=== PATIENT | female | born 1955 | race African-American/Black ===

== ENCOUNTER 2017-09-28 10:14 | Inpatient (IN) | payer BC, OTHER ==
[~2017-09-28] VITALS: Ht 154.9 cm; Wt 78.4 kg
[~2017-09-28 10:14] MED LIST: METF500T6 PO; PIPERACILLIN/TAZO 3.375 GM/D5W 50 ML IV SCH
[2017-09-28 10:33] LABS: GLUCOSE,POINT OF CARE 174 MG/DL (70-110)
[2017-09-28] MEDS ORDERED: BARIUM SULFATE 0.1% SUSPENSION 450 ML BOTTLE PO ONE (11:15)
[2017-09-28] MEDS ORDERED: FentaNYL CITRATE-PF 100 MCG/2 ML VIAL IVP ONE (11:15)
[2017-09-28] MEDS ORDERED: SODIUM CHLORIDE 0.9% 1,000 ML IV ONE (11:15)
[2017-09-28] MEDS ORDERED: ONDANSETRON HCL 4 MG/2 ML VIAL IVP ONE (11:15)
[2017-09-28 11:18] LABS: HEMATOCRIT 37.8 % (36-46); HEMOGLOBIN 12.8 g/dL (12.0-16.0); MEAN CORPUSCULAR HGB CONC 33.8 G/dL (31.0-37.0); MEAN CORPUSCULAR VOLUME 80 fL (80-100); PLATELET COUNT (AUTO) 312 K/uL (150-450); RED BLOOD CELL COUNT(AUTO) 4.73 MIL/uL (4.00-5.20); RED CELL DISTRIBUTION WIDTH 13.6 % (11.5-14.5)
[2017-09-28 11:30] LABS: CALCIUM, TOTAL 9.3 mg/dL (8.8-10.5); CREATININE 1.29 mg/dL (0.60-1.30); POTASSIUM 4.1 mmol/L (3.5-5.1)
[2017-09-28 11:36] LABS: BILIRUBIN,TOTAL 1.4 mg/dL (0.1-1.0); TOTAL PROTEIN, SERUM 8.3 g/dL (6.4-8.2)
[2017-09-28 11:38] LABS: LACTIC ACID 1.7 mmol/L (0.4-2.0)
[2017-09-28 11:55] LABS: BAND NEUTROPHILS % (MANUAL) 21 % (0-5); LYMPHOCYTES % (MANUAL) 12 % (22-44); MONOCYTES % (MANUAL) 7 % (2-9); SEGMENTED NEUTROPHILS % 60 % (40-70)
[2017-09-28 12:02] LABS: APPEARANCE,URINE TURBID (CLEAR); GLUCOSE, URINE (UA) NEGATIVE (NEGATIVE); KETONES,URINE 15 mg/dL (NEGATIVE); LEUKOCYTE ESTERASE ,URINE TRACE (NEGATIVE); NITRATE,URINE POSITIVE (NEGATIVE); OCCULT BLOOD,URINE NEGATIVE (NEGATIVE); PH,URINE 5.5 (5.0-8.0); PROTEIN,URINE SEE CONFIRM (NEGATIVE)
[2017-09-28 12:10] LABS: BILIRUBIN,URINE PRELIM. POSITIVE (NEGATIVE)
[2017-09-28 12:11] LABS: SULFOSALICYLIC ACID,URINE 1+ (Negative)
[2017-09-28 12:13] LABS: BACTERIA,URINE Moderate /HPF (None Seen); RBC,URINE None Seen /HPF (0-2); SQUAMOUS EPITHELIAL CELL,UR Moderate /LPF (None Seen); WBC,URINE 0-2 /HPF (0-5)
[2017-09-28] MEDS ORDERED: IOVERSOL 350 MG/ML 150 ML VIAL ONE (12:24)
[2017-09-28] MEDS ORDERED: IOVERSOL 350 MG/ML 100 ML VIAL ONE (12:51)
[2017-09-28] MEDS ORDERED: PIPERACILLIN/TAZO 3.375 GM/D5W 50 ML IV ONE ×3 (13:45→20:00)
[2017-09-28] MEDS ORDERED: DiphenhydrAMINE HCL 50 MG/ML VIAL IVP ONE (14:00)
[2017-09-28] MEDS ORDERED: MORPHINE SULFATE 4 MG/ML SYRINGE IVP PRN (14:00)
[2017-09-28] MEDS ORDERED: POTASSIUM CHL 20 MEQ/0.45% NS 1,000 ML IV ONE (14:00)
[2017-09-28] MEDS ORDERED: ONDANSETRON HCL 4 MG/2 ML VIAL IVP PRN ×2 (14:00→20:15)
[2017-09-28] MEDS ORDERED: 0.9% SODIUM CHLORIDE 10 ML SYRINGE IVP PRN (14:00)
[2017-09-28 14:47] LABS: GLUCOSE,POINT OF CARE 137 MG/DL (70-110)
[2017-09-28 16:00] VITALS: BP 128/62
[2017-09-28] MEDS ORDERED: DEXTROSE 50%-WATER 25 GM/50 ML SYRINGE IVP PRN (20:15)
[2017-09-28 20:19] VITALS: BP 117/66
[2017-09-28] MEDS: PANTOPRAZOLE SODIUM 40 MG/VIAL IVP SCH (20:43)
[2017-09-28] MEDS: ACETAMINOPHEN 650 MG RECTAL SUPPOSITORY PR PRN (20:43)
[2017-09-28] MEDS: SODIUM CHLORIDE 0.9% 1,000 ML IV SCH (20:44)
[2017-09-28 23:42] LABS: GLUCOMETER DEV NAME(LOC) 6N 1E; GLUCOSE,POINT OF CARE 120 MG/DL (70-110)
[2017-09-29 00:28] VITALS: BP 107/64
[2017-09-29] MEDS ORDERED: PIPERACILLIN/TAZO 3.375 GM/D5W 50 ML IV SCH (02:00)
[2017-09-29] MEDS: PIPERACILLIN/TAZO 3.375 GM/D5W 50 ML IV SCH ×4 (03:53→21:50)
[2017-09-29 05:10] VITALS: BP 114/86
[2017-09-29 06:12] LABS: GLUCOMETER DEV NAME(LOC) 6N 2D; GLUCOSE,POINT OF CARE 89 MG/DL (70-110)
[2017-09-29 06:49] LABS: HEMATOCRIT 34.8 % (36-46); MEAN CORPUSCULAR HEMOGLOBIN 27.5 pg (26.0-34.0); MEAN CORPUSCULAR HGB CONC 34.5 G/dL (31.0-37.0); MEAN CORPUSCULAR VOLUME 80 fL (80-100); PLATELET COUNT (AUTO) 286 K/uL (150-450); RED BLOOD CELL COUNT(AUTO) 4.37 MIL/uL (4.00-5.20); RED CELL DISTRIBUTION WIDTH 14.1 % (11.5-14.5)
[2017-09-29 08:07] LABS: ALANINE AMINOTRANSFERASE 25 U/L (12-78); ALBUMIN 2.5 g/dL (3.4-5.0); ALKALINE PHOSPHATASE 60 U/L (46-116); ANION GAP 13 mmol/L (8-16); ASPARTATE AMINOTRANSFERASE 18 U/L (15-37); BILIRUBIN,TOTAL 1.4 mg/dL (0.1-1.0); CALCIUM, TOTAL 8.5 mg/dL (8.8-10.5); CARBON DIOXIDE 23 mmol/L (22-29); CHLORIDE 103 mmol/L (98-107); GLOMERULAR FILTR. RATE CALC > 60 mL/min (>60); GLUCOSE,RANDOM 94 mg/dL (70-110); POTASSIUM 3.2 mmol/L (3.5-5.1); SODIUM SERUM 139 mmol/L (136-145); TOTAL PROTEIN, SERUM 7.2 g/dL (6.4-8.2); UREA NITROGEN, BLOOD 15 mg/dL (7-18)
[2017-09-29 08:14] VITALS: BP 119/76
[2017-09-29 08:42] LABS: BAND NEUTROPHILS % (MANUAL) 10 % (0-5); BASOPHILS % (MANUAL) 1 % (0-2); EOSINOPHILS % (MANUAL) 1 % (1-6); LYMPHOCYTES % (MANUAL) 13 % (22-44); MONOCYTES % (MANUAL) 8 % (2-9); SEGMENTED NEUTROPHILS % 67 % (40-70)
[2017-09-29] MEDS: PANTOPRAZOLE SODIUM 40 MG/VIAL IVP SCH (09:15)
[2017-09-29] MEDS: SODIUM CHLORIDE 0.9% 1,000 ML IV SCH (09:16)
[2017-09-29 11:40] VITALS: BP 138/75
[2017-09-29 12:08] LABS: GLUCOMETER DEV NAME(LOC) 6N 2D; GLUCOSE,POINT OF CARE 75 MG/DL (70-110)
[2017-09-29] MEDS: DEXTROSE 5%-0.45% SODIUM CHL 1,000 ML IV SCH (15:23)
[2017-09-29 15:39] VITALS: BP 134/76
[2017-09-29] MEDS: ACETAMINOPHEN 650 MG RECTAL SUPPOSITORY PR PRN (18:32)
[2017-09-29 18:38] LABS: GLUCOMETER DEV NAME(LOC) 6N 1E; GLUCOSE,POINT OF CARE 105 MG/DL (70-110)
[2017-09-29 20:22] VITALS: BP 118/71
[2017-09-30 00:16] VITALS: BP 121/67
[2017-09-30 02:28] LABS: GLUCOMETER DEV NAME(LOC) 6N 2D; GLUCOSE,POINT OF CARE 105 MG/DL (70-110)
[2017-09-30] MEDS: MORPHINE SULFATE 4 MG/ML SYRINGE IVP PRN (03:02)
[2017-09-30] MEDS: DEXTROSE 5%-0.45% SODIUM CHL 1,000 ML IV SCH ×2 (03:38→18:15)
[2017-09-30] MEDS: PIPERACILLIN/TAZO 3.375 GM/D5W 50 ML IV SCH ×4 (03:38→22:24)
[2017-09-30 05:19] VITALS: BP 113/69
[2017-09-30 05:25] LABS: BASOPHILS % (AUTO) 0.2 % (0.0-2.0); EOSINOPHILS % (AUTO) 2.3 % (1.0-6.0); HEMATOCRIT 30.6 % (36-46); HEMOGLOBIN 10.3 g/dL (12.0-16.0); LYMPHOCYTES # (AUTO) 0.6 K/uL (1.0-4.8); LYMPHOCYTES % (AUTO) 13.7 % (22.0-44.0); MEAN CORPUSCULAR HEMOGLOBIN 26.8 pg (26.0-34.0); MEAN CORPUSCULAR HGB CONC 33.7 G/dL (31.0-37.0); MEAN CORPUSCULAR VOLUME 80 fL (80-100); MONOCYTES # (AUTO) 0.3 K/uL (0.1-1.0); MONOCYTES % (AUTO) 7.5 % (2.0-9.0); NEUTROPHILS # (AUTO) 3.5 K/uL (1.8-7.7); NEUTROPHILS % (AUTO) 76.3 % (40.0-70.0); PLATELET COUNT (AUTO) 278 K/uL (150-450); RED BLOOD CELL COUNT(AUTO) 3.85 MIL/uL (4.00-5.20); RED CELL DISTRIBUTION WIDTH 13.8 % (11.5-14.5)
[2017-09-30 05:40] LABS: ALANINE AMINOTRANSFERASE 18 U/L (12-78); ALBUMIN 1.9 g/dL (3.4-5.0); ALKALINE PHOSPHATASE 53 U/L (46-116); ANION GAP 8 mmol/L (8-16); ASPARTATE AMINOTRANSFERASE 16 U/L (15-37); BILIRUBIN,TOTAL 0.7 mg/dL (0.1-1.0); CALCIUM, TOTAL 8.5 mg/dL (8.8-10.5); CARBON DIOXIDE 25 mmol/L (22-29); CHLORIDE 103 mmol/L (98-107); CREATININE 0.85 mg/dL (0.60-1.30); GLOMERULAR FILTR. RATE CALC > 60 mL/min (>60); GLUCOSE,RANDOM 135 mg/dL (70-110); SODIUM SERUM 136 mmol/L (136-145); TOTAL PROTEIN, SERUM 6.3 g/dL (6.4-8.2); UREA NITROGEN, BLOOD 11 mg/dL (7-18)
[2017-09-30 05:44] LABS: POTASSIUM 2.9 mmol/L (3.5-5.1)
[2017-09-30 06:47] LABS: GLUCOMETER DEV NAME(LOC) 6N 2D; GLUCOSE,POINT OF CARE 129 MG/DL (70-110)
[2017-09-30] MEDS: POTASSIUM CHL 10 MEQ/WATER 50 ML IV PRN ×4 (06:59→11:42)
[2017-09-30] MEDS: PANTOPRAZOLE SODIUM 40 MG/VIAL IVP SCH (08:43)
[2017-09-30 11:54] VITALS: BP 144/67
[2017-09-30 12:13] LABS: GLUCOMETER DEV NAME(LOC) 6N 1E; GLUCOSE,POINT OF CARE 144 MG/DL (70-110)
[2017-09-30] MEDS: INSULIN LISPRO 100 UNITS/ML SQ PRN (12:20)
[2017-09-30 15:31] VITALS: BP 121/84
[2017-09-30] MEDS ORDERED: ACETAMINOPHEN 325 MG TABLET PO PRN (15:45)
[2017-09-30 19:15] VITALS: BP 111/67
[2017-09-30 19:48] LABS: GLUCOMETER DEV NAME(LOC) 6N 2D; GLUCOSE,POINT OF CARE 120 MG/DL (70-110)
[2017-09-30 21:03] LABS: GLUCOMETER DEV NAME(LOC) 6N 1E; GLUCOSE,POINT OF CARE 137 MG/DL (70-110)
[2017-09-30 23:20] VITALS: BP 111/65
[2017-10-01] MEDS: MORPHINE SULFATE 4 MG/ML SYRINGE IVP PRN (00:49)
[2017-10-01 04:05] VITALS: BP 115/67
[2017-10-01] MEDS: PIPERACILLIN/TAZO 3.375 GM/D5W 50 ML IV SCH ×4 (04:33→21:08)
[2017-10-01] MEDS: DEXTROSE 5%-0.45% SODIUM CHL 1,000 ML IV SCH ×2 (04:33→21:08)
[2017-10-01 06:14] LABS: GLUCOMETER DEV NAME(LOC) 6N 1E; GLUCOSE,POINT OF CARE 137 MG/DL (70-110)
[2017-10-01 07:23] VITALS: BP 113/73
[2017-10-01] MEDS: PANTOPRAZOLE SODIUM 40 MG/VIAL IVP SCH (10:00)
[2017-10-01 11:05] VITALS: BP 100/55
[2017-10-01 14:23] LABS: GLUCOMETER DEV NAME(LOC) 6N 2D; GLUCOSE,POINT OF CARE 131 MG/DL (70-110)
[2017-10-01 15:35] VITALS: BP 135/79
[2017-10-01 19:44] VITALS: BP 125/74
[2017-10-01 19:47] LABS: GLUCOMETER DEV NAME(LOC) 6N 1E; GLUCOSE,POINT OF CARE 129 MG/DL (70-110)
[2017-10-01 21:18] LABS: GLUCOMETER DEV NAME(LOC) 6N 1E; GLUCOSE,POINT OF CARE 114 MG/DL (70-110)
[2017-10-01 23:23] VITALS: BP 118/67
[2017-10-02 04:12] VITALS: BP 123/67
[2017-10-02] MEDS: PIPERACILLIN/TAZO 3.375 GM/D5W 50 ML IV SCH ×3 (04:25→16:00)
[2017-10-02 05:02] LABS: GLUCOMETER DEV NAME(LOC) 6N 1E; GLUCOSE,POINT OF CARE 170 MG/DL (70-110)
[2017-10-02] MEDS: INSULIN LISPRO 100 UNITS/ML SQ PRN ×2 (05:25→12:35)
[2017-10-02 08:20] VITALS: BP 144/75
[2017-10-02] MEDS: PANTOPRAZOLE SODIUM 40 MG/VIAL IVP SCH (08:34)
[2017-10-02 11:30] VITALS: BP 136/74
[2017-10-02 15:13] LABS: GLUCOMETER DEV NAME(LOC) 6N 1E; GLUCOSE,POINT OF CARE 175 MG/DL (70-110)
[2017-10-02 15:15] VITALS: BP 136/70
[2017-10-02] MEDS ORDERED: AMOX1TAB16 PO (16:06)
== END 2017-10-02 17:05 | disposition home or self-care (01) | DRG 872 ==
LOC: EMS 10:15 → 6N 14:39
PROVIDERS: ADMIT Hospitalist; ATTEND Hospitalist
DX: A41.9 Sepsis, unspecified organism (principal); K66.8 Other specified disorders of peritoneum; K57.20 Diverticulitis of large intestine with perforation and abscess without bleeding; N39.0 Urinary tract infection, site not specified; D25.9 Leiomyoma of uterus, unspecified; R03.0 Elevated blood-pressure reading, without diagnosis of hypertension; S40.011A Contusion of right shoulder, initial encounter; E11.9 Type 2 diabetes mellitus without complications; E86.0 Dehydration; Z79.84 Long term (current) use of oral hypoglycemic drugs; Y92.89 Other specified places as the place of occurrence of the external cause
CPT/HCPCS: 74177; 76705; 83605; 84132; 84145; 87040; 87081; 87086; 93005; 96365; 96366; 96375; 99285; C9113; J1200; J2270; J2405; J2543; J3010; J3480; J7030

== ENCOUNTER 2025-02-22 10:11 | Inpatient (IN) | payer MEDICARE, MEDICAID ==
[~2025-02-22] VITALS: Ht 154.9 cm; Wt 78.9 kg
[~2025-02-22 10:11] MED LIST changes: +AMOX-457 PO; +METF-1211 PO; -METF500T6 PO; -PIPERACILLIN/TAZO 3.375 GM/D5W 50 ML IV SCH
[2025-02-22 10:41] LABS: PLATELET COUNT (AUTO) 265 K/uL (150-450); RED BLOOD CELL COUNT(AUTO) 4.97 MIL/uL (4.00-5.20); RED CELL DISTRIBUTION WIDTH 13.5 % (11.5-14.5); WHITE BLOOD COUNT (AUTO) 5.2 K/uL (4.5-11.0)
[2025-02-22 10:49] LABS: CALCIUM, TOTAL 9.0 mg/dL (8.8-10.5); CREATININE 0.76 mg/dL (0.60-1.30); GLOMERULAR FILTR. RATE CALC > 60 mL/min (>60); GLUCOSE,RANDOM 147 mg/dL (70-110); SODIUM SERUM 140 mmol/L (136-145); UREA NITROGEN, BLOOD 15 mg/dL (7-18)
[2025-02-22 10:55] LABS: ASPARTATE AMINOTRANSFERASE 17.0 U/L (15-37); TOTAL PROTEIN, SERUM 7.8 g/dL (6.4-8.2)
[2025-02-22 11:00] LABS: TROPONIN I-HIGH SENSITIVITY 12 ng/L (<51)
[2025-02-22] MEDS: SODIUM CHLORIDE 0.9% 500 ML IV ONE (12:10)
[2025-02-22] MEDS ORDERED: ONDANSETRON HCL 4 MG/2 ML VIAL IVP PRN (13:30)
[2025-02-22] MEDS ORDERED: ACETAMINOPHEN 325 MG TABLET PO PRN (13:30)
[2025-02-22] MEDS ORDERED: MAGNESIUM HYDROXIDE SUSPENSION 30 ML UDCUP PO PRN (13:30)
[2025-02-22 13:32] LABS: APPEARANCE,URINE CLEAR (CLEAR); GLUCOSE, URINE (UA) NEGATIVE (NEGATIVE); LEUKOCYTE ESTERASE ,URINE NEGATIVE (NEGATIVE); NITRATE,URINE NEGATIVE (NEGATIVE); OCCULT BLOOD,URINE NEGATIVE (NEGATIVE); SPECIFIC GRAVITIY, URINE 1.019 (1.003-1.030)
[2025-02-22] MEDS: SODIUM CHLORIDE 0.9% 2,300 ML IV ONE (13:42)
[2025-02-22] MEDS: HEPARIN SODIUM,PORCINE 5,000 UNITS/ML VIAL SQ SCH (16:42)
[2025-02-22] MEDS: DOCUSATE SODIUM 100 MG CAPSULE PO SCH (20:08)
[2025-02-22 22:13] VITALS: BP 171/90; PULSE 63; RESP 18; TEMP 98.1; O2SAT 98
[2025-02-22] MEDS: OxyCODONE HCL/ACETAMINOPHEN 5-325 MG TABLET PO PRN (22:18)
[2025-02-22 23:00] VITALS: BP 163/80
[2025-02-23 00:24] VITALS: BP 128/74; PULSE 57; RESP 18; TEMP 97.7; O2SAT 98
[2025-02-23 04:05] VITALS: BP 154/80; PULSE 55; RESP 18; TEMP 97.5; O2SAT 100
[2025-02-23 06:20] LABS: GLUCOMETER DEV NAME(LOC) 5N.1D; GLUCOSE,POINT OF CARE 125 MG/DL (70-110)
[2025-02-23 06:56] LABS: PLATELET COUNT (AUTO) 239 K/uL (150-450); RED BLOOD CELL COUNT(AUTO) 4.84 MIL/uL (4.00-5.20); RED CELL DISTRIBUTION WIDTH 13.9 % (11.5-14.5); WHITE BLOOD COUNT (AUTO) 4.8 K/uL (4.5-11.0)
[2025-02-23 07:15] LABS: CALCIUM, TOTAL 9.0 mg/dL (8.8-10.5); CREATININE 0.69 mg/dL (0.60-1.30); GLOMERULAR FILTR. RATE CALC > 60 mL/min (>60); GLUCOSE,RANDOM 119 mg/dL (70-110); SODIUM SERUM 139 mmol/L (136-145); UREA NITROGEN, BLOOD 10 mg/dL (7-18)
[2025-02-23 08:00] VITALS: BP 133/67; PULSE 63; RESP 18; TEMP 98.6; O2SAT 98
[2025-02-23] MEDS: FAMOTIDINE 20 MG TABLET PO SCH (09:17)
[2025-02-23 12:00] VITALS: BP 151/77; PULSE 60; RESP 18; TEMP 98.4; O2SAT 98
[2025-02-23 16:00] VITALS: BP 144/82; PULSE 62; RESP 16; TEMP 98.2; O2SAT 98
[2025-02-23 20:34] VITALS: BP 147/73; PULSE 78; RESP 16; TEMP 97.9; O2SAT 97
[2025-02-24 00:58] VITALS: BP 135/80; PULSE 61; RESP 15; TEMP 97.7; O2SAT 98
[2025-02-24 04:15] VITALS: BP 145/70; PULSE 57; RESP 16; TEMP 97.7; O2SAT 96
[2025-02-24 08:22] LABS: PLATELET COUNT (AUTO) 255 K/uL (150-450); RED BLOOD CELL COUNT(AUTO) 4.98 MIL/uL (4.00-5.20); RED CELL DISTRIBUTION WIDTH 13.7 % (11.5-14.5); WHITE BLOOD COUNT (AUTO) 5.3 K/uL (4.5-11.0)
[2025-02-24 08:28] LABS: CALCIUM, TOTAL 9.6 mg/dL (8.8-10.5); CREATININE 0.87 mg/dL (0.60-1.30); GLOMERULAR FILTR. RATE CALC > 60 mL/min (>60); GLUCOSE,RANDOM 142 mg/dL (70-110); SODIUM SERUM 138 mmol/L (136-145); UREA NITROGEN, BLOOD 14 mg/dL (7-18)
[2025-02-24 08:30] VITALS: BP 162/79; PULSE 58; RESP 17; TEMP 98; O2SAT 98
[2025-02-24 11:46] VITALS: BP 146/76; PULSE 60; RESP 18; TEMP 98.1; O2SAT 97
[2025-02-24 15:48] VITALS: BP 153/94; PULSE 67; RESP 17; TEMP 98; O2SAT 99
[2025-02-24] MEDS ORDERED: AMLO-258 PO (17:58)
[2025-02-24] MEDS ORDERED: PERCT PO (18:29)
== END 2025-02-24 19:00 | disposition home or self-care (01) | DRG 305 ==
LOC: EMS 10:16 → EDH 12:25 → 5N 21:52
PROVIDERS: ADMIT Internal Medicine; ATTEND Internal Medicine
DX: I16.0 Hypertensive urgency (principal); N20.0 Calculus of kidney; M54.50 Low back pain, unspecified; R91.1 Solitary pulmonary nodule; I10 Essential (primary) hypertension
CPT/HCPCS: 71045; 72100; 74176; 80048; 80076; 81003; 82962; 83690; 84484; 85025; 93005; 97116; 97163; 97530; 99285; J1644; J7040; 36415-L1; 36415-TC